=== PATIENT | male | born 1965 | race Hispanic/Latino ===

== ENCOUNTER 2017-07-12 17:50 | Emergency (ER) | payer OTHER ==
[~2017-07-12 17:50] MED LIST: BUDE10.2 IH; BUPR100T13 PO; DULO30CA2 PO; FISH1CAP50 PO; GLIP10TA9 PO; INSLAN SQ; LIRA0.6P SQ; PREG150C PO; SIMV40TA59 PO
[2017-07-12] MEDS ORDERED: KETOROLAC TROMETHAMINE 60 MG/2 ML VIAL ONE (18:27)
== END 2017-07-12 19:49 | disposition home or self-care (01) ==
LOC: EDH 17:50
DX: S79.811A Other specified injuries of right hip, initial encounter (principal); M25.561 Pain in right knee; E11.9 Type 2 diabetes mellitus without complications; E78.5 Hyperlipidemia, unspecified; Z72.0 Tobacco use; Z79.4 Long term (current) use of insulin; W51.XXXA Accidental striking against or bumped into by another person, initial encounter; Y93.89 Activity, other specified; Y92.098 Other place in other non-institutional residence as the place of occurrence of the external cause; Y99.8 Other external cause status
CPT/HCPCS: 73502; 73562; 73700; 96372; 99284; J1885